=== PATIENT | male | born 1955 | race Caucasian/White ===

== ENCOUNTER 2019-08-29 13:06 | Emergency (ER) | payer MEDICAID ==
[~2019-08-29] VITALS: Ht 177.8 cm; Wt 110.7 kg
[2019-08-29 13:51] VITALS: Ht 177.8 cm; Wt 110.7 kg
[2019-08-29 14:53] LABS: BASOPHIL % 1.3 % (0-2); PLATELET COUNT 199 x10^3mcL (130-400)
[2019-08-29 15:08] LABS: CREATININE SERUM 0.9 mg/dL (0.7-1.3); GFR1 > 60 mL/min; SODIUM SERUM 140 mmol/L (136-145)
[2019-08-29 15:14] LABS: CALCIUM 8.8 mg/dL (8.5-10.1); CARBON DIOXIDE 28.8 mmol/L (21-32); CHLORIDE SERUM 103 mmol/L (98-107); GLUCOSE SERUM 98 mg/dL (74-106); POTASSIUM SERUM 3.9 mmol/L (3.5-5.1)
[2019-08-29 15:26] LABS: ALBUMIN 3.7 g/dL (3.4-5.0); ALKALINE PHOSPHATASE 62 U/L (46-116); ALT/SGPT 53 U/L (16-63); AST/SGOT 38 U/L (15-37); BILIRUBIN TOTAL 1.1 mg/dL (0.20-1.00); LIPASE 150 IU/L (73-393); TOTAL PROTEIN, SERUM 7.3 g/dL (6.4-8.2)
[2019-08-29 19:06] VITALS: BP 129/78
== END 2019-08-29 19:05 | disposition home or self-care (01) ==
LOC: ED 13:06
PROVIDERS: Emergency Medicine
DX: R05 Cough (principal); S30.1XXA Contusion of abdominal wall, initial encounter; F17.210 Nicotine dependence, cigarettes, uncomplicated; X58.XXXA Exposure to other specified factors, initial encounter; Y93.89 Activity, other specified; Y92.89 Other specified places as the place of occurrence of the external cause; Y99.8 Other external cause status
CPT/HCPCS: 36415; J7030; Q9967